=== PATIENT | female | born 1980 | race Caucasian/White ===

== ENCOUNTER 2017-07-17 02:25 | Inpatient (IN) | payer OTHER ==
[~2017-07-17] VITALS: Ht 170.2 cm; Wt 68.0 kg
[~2017-07-17 02:25] MED LIST: LEVOTHYROXINE50 MCG PO; LISINOPRIL-HCT1 EACH PO; MIRENA1 EACH; MULTIVITAMINS1 EAC9 PO; PLAQUENIL200 M1 PO; VENLAFAXINE HCL75 MG PO
--- NOTE | 2017-07-17 11:11 | Operative Report ---
Operative/Inv Procedure Report Surgery Date: 07/17/17 Name of Procedure: cystoscopy: bilateral stent insertion Pre-Operative Diagnosis: Pelvic mass Post-Operative Diagnosis: Same Estimated Blood Loss: scant Surgeon/Implementation Engineer: MD Mark, Sunil-Urology. Anesthesia: general endotracheal tube Specimens: Urine culture Complications: None Operative/Procedure Note Note: The patient was taken to the operating room and placed on the OR table in supine position. Timeout was performed, with the patient awake, to confirm correct identify, planned procedures, anesthesia, antibiotics, and other pertinent yris -operative information. After adequate anesthesia, and IV antibiotics, the patient was placed in lithotomy Yellow-fin stirrups. She was then draped and prepped in the usual surgical fashion, including a vaginal prep. A 22 Azerbaijani cystoscope sheath with a 30 angle lens was inserted into the bladder without significant difficulty. The bladder was thoroughly and systematically examined, and was noted to be free of tumor, free of stone, free of endometriosis. Both ureteral orifices were in their orthotopic positions with clear reflux bilaterally. Under direct visualization the left orifice was intubated with a 5 Azerbaijani whistle-tip catheter, which was advanced easily into the left kidney pelvis. The right ureteral orifice was intubated with a second 5 Azerbaijani ureteral whistle tip catheter, and advanced into the right renal pelvis without difficulty. For identification purposes the blue marked stent went into the left kidney, and the right ureteral stent was marked red. Urine culture was obtained and sent to pathology. The cystoscope was then removed leaving both stents in proper place. An 18 [place]ani Carlisle catheter was inserted draining clear fluid and 10 mL of sterile water was then placed in the balloon. The ends of the ureteral stents, which protruded externally, were taped to the Carlisle catheter in order to secure their position. The individual ureteral stents were then connected to their individual drainage devices. The patient tolerated the procedure well. All sponge needle and instrument count were correct at the end of this procedure. The patient was then repositioned in supine position, and Venodynes were placed on the lower extremeties bilaterally. At this point, Dr. Patel was able to proceed with the patient's surgery. Discharge Disposition: Proceed with Dr. Patel CC: Sunil Flores MD
[2017-07-17 16:00] VITALS: BP 130/80
[2017-07-17 22:28] VITALS: BP 92/52
[2017-07-18 05:49] VITALS: BP 110/62
[2017-07-18 08:18] LABS: ABSOLUTE BASOPHIL COUNT 0 /CUMM (0.0-0.2); ABSOLUTE EOSINOPHIL COUNT 0 /CUMM (0.0-0.7); ABSOLUTE GRANULOCYTE CT 3.3 /CUMM (1.4-6.5); ABSOLUTE LYMPH COUNT 0.8 /CUMM (1.2-3.4); ABSOLUTE MONOCYTE COUNT 0.2 /CUMM (0.10-0.60); BASOPHIL % 0.1 % (0.0-2.0); EOSINOPHIL % 0.2 % (0-5); HEMATOCRIT 43.5 % (37-47); MEAN CORPUSCULAR HGB 33.2 PG (27.0-31.0); MEAN CORPUSCULAR HGB CONC 33.4 G/DL (33.0-37.0); MEAN CORPUSCULAR VOLUME 99.6 FL (81.0-99.0); MEAN PLATELET VOLUME 9.8 FL (7.4-10.4); PLATELET COUNT 155 /CUMM (130-400); RBC DISTRIBUTION WIDTH 13.3 % (11.5-14.5); RED BLOOD CELL CT 4.37 /CUMM (4.20-5.40); WHITE BLOOD CELL COUNT 4.4 /CUMM (4.8-10.8)
[2017-07-18] MEDS ORDERED: PERCOCET 5-3251 EACH PO (08:46)
[2017-07-18] MEDS ORDERED: IBUPROFEN800 M1 PO (08:46)
--- NOTE | 2017-07-18 08:51 | PN- Post Delivery/GYN ---
Subjective Subjective: NO COMPLAINTS Objective Last 24 Hrs of Vital Signs/I&O Vital Signs Date Time Temp Pulse Resp B/P B/P Pulse O2 O2 Flow FiO2 Mean Ox Delivery Rate 07/18 0549 97.6 52 20 110/62 97 Room Air 07/17 2228 98.0 47 16 92/52 98 Room Air 07/17 1600 98.6 52 18 130/80 95 Room Air Intake & Output 07/18 1600 07/18 0800 07/18 0000 Intake Total 1395 2385 Output Total 550 685 Balance 845 1700 Intake, IV 1395 2385 Intake, Oral 0 0 Number 0 Bowel Movements Output, Urine 550 685 Patient 150 lb Weight Weight Reported by Patient Measurement Method Physical Exam: PE THIN WF IN NAD ABD SOFT NT INCISION CDI EXT -EDEMA-HOMANS Assessment/Plan Assessment/Plan ASSESS S/P OVARIAN CYSTECTOMY PLAN CONT POC ADVANCE DIET AND AMBULATION
[2017-07-18 15:34] VITALS: BP 110/62
[2017-07-18 22:28] VITALS: BP 100/62
[2017-07-19 06:39] VITALS: BP 120/82
--- NOTE | 2017-07-21 14:20 | Operative Report ---
Operative/Inv Procedure Report Surgery Date: 07/17/17 Name of Procedure: Laparotomy left ovarian cystectomy Pre-Operative Diagnosis: Pelvic mass Post-Operative Diagnosis: same Estimated Blood Loss: less than 50ml Surgeon/Drilling Supervisor: Jorge NUNEZ,Sonali Reyes Anesthesia: general endotracheal tube Operative/Procedure Note Note: Procedure patient was taken the operating room placed prone position of anesthesia patient placed in dorsolithotomy position the vagina was prepped draped sterile fashion bladder was catheterized examination under anesthesia performed Dr. Flores performed cystoscopy and placement stents will dictate that part case patient was returned spine position the abdomen was prepped and draped so fashion 2 fingerbreadths of since pubis in midline skin was cut was carried down to rectus fascia was cut in curvilinear fashion either direction peritoneal cavity was entered high into the abdomen: O'Brett was placed in usual fashion patient tolerated that well at this point peritoneal washings were obtained sent to pathology on the right ovary was examined and found to be normal with multiple simple cysts which were drained using a Bovie the left ovary had a small 1-2 cm area consistent with a dermoid a wedge section was made with a Bovie the edges of the wedge were reapproximated using 30 hemostasis was apparent at the end of the case the Stu was applied to the surgical site to prevent adhesions once the abdomen on the incision at the peritoneum was reapproximated 0 the far shows reapproximated to continue sutures #1 the skin was reapproximated using vishal at the end the case the stents removed bilaterally tip intact on the counts correct patient was extubated and transferred recovery room awake alert counts correct
== END 2017-07-19 11:06 | DRG 743 ==
LOC: SDA 02:25 → 2NB 02:25 → SDA 07:00 → ENRESERV 13:51 → ENTRNSPT 14:45 → EDTRNSPTSTS 15:00 → EDTRNSPT 15:00 → 2NB 15:10 → CMPTRNSPT 15:43 → 2NB 17:22 → ENPENDDIS 07-18 08:50 → 2NB 07-19 11:06
PROVIDERS: Specialist
PROC: 3E1M38X Irrigation of Peritoneal Cavity using Irrigating Substance, Percutaneous Approach, Diagnostic (ICD-10-PCS; principal; 2017-07-17)
PROC: 0UB10ZZ Excision of Left Ovary, Open Approach (ICD-10-PCS; principal; 2017-07-17)
PROC: 0U903ZZ Drainage of Right Ovary, Percutaneous Approach (ICD-10-PCS; principal; 2017-07-17)
PROC: 0T788DZ Dilation of Bilateral Ureters with Intraluminal Device, Via Natural or Artificial Opening Endoscopic (ICD-10-PCS; 2017-07-17)
DX: N83.202 Unspecified ovarian cyst, left side (principal); E03.9 Hypothyroidism, unspecified; N83.201 Unspecified ovarian cyst, right side; I10 Essential (primary) hypertension; I73.00 Raynaud's syndrome without gangrene; F32.9 Major depressive disorder, single episode, unspecified
CPT/HCPCS: 36415; 81025; 87086; C9399; J0131; J0694; J1100; J1200; J1650; J1885; J2405